=== PATIENT | male | born 1985 | race Caucasian/White ===

== ENCOUNTER 2017-08-12 19:40 | Inpatient (IN) | payer OTHER ==
[2017-08-12 23:13] VITALS: BMI 26.6
--- NOTE | 2017-08-12 23:43 | HP ---
CIWA Score - CIWA Score Nausea/Vomitin (vomiting x 5) Muscle Tremors: 4-Moderate,w/Arms Extend Anxiety: 3 Agitation: 4-Moderately Restless Paroxysmal Sweats: 2 Orientation: 0-Oriented Tacttile Disturbances: 0-None Auditory Disturbances: 0-None Visual Disturbances: 0-None Headache: 3-Moderate CIWA-Ar Total Score: 19 Admission ROS BHS - HPI Chief Complaint: Alcohol withdrawal symptoms Allergies/Adverse Reactions: Allergies Allergy/AdvReac Type Severity Reaction Status Date / Time No Known Allergies Allergy Verified 08/12/17 23:52 History of Present Illness: 31 years old male with a long history of alcohol dependence is seeking admission to detox. Patient has been in previous detox and reports insignificant period of sobriety. He has medical history of of HTN and depression. Denies suicidal ideation at this time Exam Limitations: No Limitations - Ebola screening Have you traveled outside of the country in the last 21 days: No Have you had contact with anyone from an Ebola affected area: No Have you been sick,other than usual withdrawal symptoms: No Do you have a fever: No - Review of Systems Constitutional: Loss of Appetite, Malaise, Night Sweats, Changes in sleep EENT: reports: No Symptoms Reported Respiratory: reports: No Symptoms reported Cardiac: reports: No Symptoms Reported GI: reports: Diarrhea (x 2), Nausea, Poor Appetite, Poor Fluid Intake, Vomiting (x 5), Abdominal cramping : reports: No Symptoms Reported Musculoskeletal: reports: Back Pain Integumentary: reports: Dryness Neuro: reports: Headache, Tremors Endocrine: reports: No Symptoms Reported Hematology: reports: No Symptoms Reported Psychiatric: reports: Anxious, Depressed Other Systems: Reviewed and Negative Patient History - Patient Medical History Hx Anemia: No Hx Asthma: No Hx Chronic Obstructive Pulmonary Disease (COPD): No Hx Cancer: No Hx Cardiac Disorders: No Hx Congestive Heart Failure: No Hx Hypertension: Yes (Not on medication) Hx Hypercholesterolemia: No Hx Pacemaker: No HX Cerebrovascular Accident: No Hx Seizures: No Hx Diabetes: No Hx Gastrointestinal Disorders: No Hx Liver Disease: No Hx Genitourinary Disorders: No Hx Sexually Transmitted Disorders: No Hx Renal Disease (ESRD): No Hx Thyroid Disease: No Hx Human Immunodeficiency Virus (HIV): No (Negative 2016) Hx Hepatitis C: No Hx Depression: Yes (Not on medication) Hx Suicide Attempt: No (Denies suicvide attempt and suicidal ideation at this time) Hx Bipolar Disorder: No - Patient Surgical History Past Surgical History: No - PPD History Previous Implant?: Yes Documented Results: Negative w/o proof Implanted On Prior [facility] Admission?: No PPD to be Administered?: Yes - Reproductive History Patient is a Female of Child Bearing Age (11 -55 yrs old): No (Male) - Smoking Cessation Smoking history: Former smoker Have you smoked in the past 12 months: No Hx Chewing Tobacco Use: No Initiated information on smoking cessation: No - Substance & Tx. History Hx Alcohol Use: Yes Hx Substance Use: No Substance Use Type: Alcohol Hx Substance Use Treatment: Yes ([facility]) - Substances Abused Alcohol Route: Oral Frequency: Daily Amount used: VODKA - 3 PINT, BEER - 6 24oz Age of first use: 17 Date of Last Use: 08/12/17 Family Disease History - Family Disease History Family History: Denies Admission Physical Exam [facility] - Vital Signs Vital Signs: Vital Signs - 24 hr 08/12/17 23:10 Temperature 99.4 F Pulse Rate 78 Respiratory 18 Rate Blood Pressure 138/95 - Physical General Appearance: Yes: Moderate Distress HEENTM: Yes: EOMI, Normal ENT Inspection, Normocephalic, Normal Voice, CARLOS MANUEL, Tm' s normal Respiratory: Yes: Lungs Clear, Normal Breath Sounds, No Respiratory Distress Neck: Yes: Supple Breast: Yes: Breast Exam Deferred Cardiology: Yes: Regular Rhythm, Regular Rate Abdominal: Yes: Normal Bowel Sounds Genitourinary: Yes: Within Normal Limits Back: Yes: Normal Inspection Musculoskeletal: Yes: Back pain, Muscle Pain Extremities: Yes: Tremors Neurological: Yes: Alert, Normal Mood/Affect Integumentary: Yes: Within Normal Limits Lymphatic: Yes: Within Normal Limits - Diagnostic (1) Alcohol dependence with uncomplicated withdrawal Current Visit: Yes Status: Chronic (2) Depression Current Visit: Yes Status: Chronic Qualifiers: Depression Type: unspecified Qualified Code(s): F32.9 - Major depressive disorder, single episode, unspecified (3) HTN (hypertension) Current Visit: Yes Status: Chronic Cleared for Admission [facility] - Detox or Rehab [facility] Level of Care: Medically Managed Detox Regimen/Protocol: Librium S Breath Alcohol Content Breath Alcohol Content: 0 Urine Drug Screen - Results Drug Screen Negative: No Urine Drug Screen Results: BZO-Benzodiazepines
[2017-08-13] MEDS ORDERED: guaiFENesin/D-METHORPHAN HB 10 ML UNIT-DOSE CUPS PO PRN (00:08)
[2017-08-13] MEDS ORDERED: IBUPROFEN 400 MG TABLET (FP) PO PRN (00:08)
[2017-08-13] MEDS ORDERED: ACETAMINOPHEN 325 MG TABLET (FP) PO PRN (00:08)
[2017-08-13] MEDS ORDERED: MENTHOL/PHENOL 1 EACH UD MM PRN (00:08)
[2017-08-13] MEDS ORDERED: LOPERAMIDE HCL 2 MG CAPSULE PO PRN (00:08)
[2017-08-13] MEDS ORDERED: P-EPHED 60MG/TRIPROLIDI 2.5MG TABLET PO PRN (00:08)
[2017-08-13] MEDS ORDERED: MAGNESIUM CITRATE 300 ML BOTTLE PO PRN (00:08)
[2017-08-13] MEDS ORDERED: MAGNESIUM HYDROX 2400MG/30ML ORAL SUSPENSION 30 ML CUP PO PRN (00:08)
[2017-08-13] MEDS: MAG HYDROX/AL HYDROX/SIMETH 30 ML UNIT-DOSE CUP PO PRN (02:17)
[2017-08-13] MEDS: chlordiazePOXIDE HCL 25 MG CAPSULE PO PRN (02:17)
[2017-08-13] MEDS: chlordiazePOXIDE HCL 25 MG CAPSULE PO SCH ×4 (05:48→22:33)
--- NOTE | 2017-08-13 09:02 | EKG ---
Test Reason : Blood Pressure : / mmHG Vent. Rate : 065 BPM Atrial Rate : 065 BPM P-R Int : 168 ms QRS Dur : 088 ms QT Int : 382 ms P-R-T Axes : 033 059 033 degrees QTc Int : 397 ms NORMAL SINUS RHYTHM NORMAL ECG NO PREVIOUS ECGS AVAILABLE Confirmed by INO LUBIN, ROLANDO ([id number]) on 08/13/2017 9:02:07 AM Referred By: Confirmed By:ROLANDO MCKINNON MD
[2017-08-13] MEDS: PRENATAL VITAMINS W/ FOLIC ACID TABLET (FP) PO SCH (10:05)
--- NOTE | 2017-08-13 14:47 | PN ---
S CIWA - CIWA Score Nausea/Vomitin-Mild Nausea/No Vomiting Muscle Tremors: 4-Moderate,w/Arms Extend Anxiety: 4-Mod. Anxious/Guarded Agitation: 4-Moderately Restless Paroxysmal Sweats: 1-Minimal Palms Moist Orientation: 0-Oriented Tacttile Disturbances: 1-Very Mild Itch/Numbness Auditory Disturbances: 0-None Visual Disturbances: 0-None Headache: 0-None Present CIWA-Ar Total Score: 15 BHS Progress Note (SOAP) Subjective: sweat tremor anxiety restlessness agitation gi distress Objective: 08/13/17 14:58 Vital Signs Temperature 97.3 F L 08/13/17 09:50 Pulse Rate 54 L 08/13/17 09:50 Respiratory Rate 18 08/13/17 09:50 Blood Pressure 115/68 08/13/17 09:50 O2 Sat by Pulse Oximetry (%) lab not available 08/13/17 15:00 lab ordered on 08/14/17 as per provider's preference Assessment: 08/13/17 15:01 withdrawal sx Plan: continue detox
[2017-08-13 17:54] LABS: URINE APPEARANCE CLEAR; URINE BILIRUBIN NEGATIVE (<2.0 mg/dL); URINE COLOR YELLOW; URINE GLUCOSE (UA) NEGATIVE (NEGATIVE); URINE KETONE NEGATIVE (NEGATIVE); URINE LEUK ESTERASE NEGATIVE (NEGATIVE); URINE NITRITE NEGATIVE (NEGATIVE); URINE PROTEIN NEGATIVE (NEGATIVE); URINE UROBILINOGEN 4.0 E.U/dl mg/dL (0.2-1.0)
[2017-08-13] MEDS: THIAMINE HCL 100 MG TABLET (FP) PO SCH (22:33)
[2017-08-13] MEDS: MELATONIN 5 MG TABLETS PO PRN (22:34)
[2017-08-14] MEDS: chlordiazePOXIDE HCL 25 MG CAPSULE PO SCH ×4 (05:42→22:34)
--- NOTE | 2017-08-14 09:40 | CONSULT ---
[facility] Psychiatric Consult - Data Date of interview: 08/14/17 Admission source: [facility] Identifying data: This is 31 years old male, , father of three, living alone, unemployed, with no psychiatrreic hospitalization history, intoxicated with Alcohol, reporting Alcohol withdrawal symptoms amd saeeking for detox. Substance Abuse History: - Smoking Cessation. Smoking history: Former smoker. Have you smoked in the past 12 months: No. Hx Chewing Tobacco Use: No. Initiated information on smoking cessation: No. - Substance & Tx. History. Hx Alcohol Use: Yes. Hx Substance Use: No. Substance Use Type: Alcohol. Hx Substance Use Treatment: Yes ([facility]). - Substances Abused. Alcohol. Route: Oral. Frequency: Daily. Amount used: VODKA - 3 PINT, BEER - 6 24oz. Age of first use: 17. Date of Last Use: 08/12/17 Medical History: HTN Psychiatric History: PATIENT REPORTS HISTORY OF DEPRESSION, DENIES SUICIDAL, HOMICIDAL HISTORY, NO MEDICATIONS TAKING PRIOR TO ADMISSION. Physical/Sexual Abuse/Trauma History: Denies Additional Comment: Observation. Detox Unit Care Protocol Mental Status Exam - Mental Status Exam Alert and Oriented to: Person Cognitive Function: Fair Patient Appearance: Unkempt Mood: Sad Affect: Flat Patient Behavior: Sedated Speech Pattern: Delayed Voice Loudness: Normal Thought Process: Circumstantial Thought Disorder: Being Controlled Hallucinations: Denies Suicidal Ideation: Denies Homicidal Ideation: Denies Insight/Judgement: Fair Sleep: Difficulty falling asleep Appetite: Fair Muscle strength/Tone: Mild Hypotonicity Gait/Station: Shuffling Additional Comments: Observation. 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 Detox Unit Care Protocol
[2017-08-14] MEDS: PRENATAL VITAMINS W/ FOLIC ACID TABLET (FP) PO SCH (10:10)
[2017-08-14 10:32] LABS: HEMATOCRIT 36.4 % (35.4-49); MCH 28.6 pg (25.7-33.7); MCHC 32.9 g/dl (32.0-35.9); MEAN CELL VOLUME 86.9 fl (80-96); PLATELET COUNT 251 K/MM3 (134-434); RBC 4.18 M/mm3 (4.00-5.60); RDW 16.8 % (11.9-15.9); WHITE BLOOD COUNT 6.1 K/mm3 (4.0-10.0)
[2017-08-14 10:55] LABS: ALBUMIN 3.7 g/dl (3.4-5.0); ANION GAP 9 (8-16); BLOOD UREA NITROGEN 7 mg/dL (7-18); CALCIUM 9.3 mg/dL (8.5-10.1); CHLORIDE 104 mmol/L (98-107); CO2 26 mmol/L (21-32); GLUCOSE,RANDOM 100 mg/dL (74-106); POTASSIUM 4.1 mmol/L (3.5-5.1); SODIUM 139 mmol/L (136-145)
[2017-08-14 10:59] LABS: ALK PHOS 301 U/L (45-117); BILIRUBIN,TOTAL 1.2 mg/dL (0.2-1.0); CREATININE 0.6 mg/dL (0.7-1.3); SGOT/AST 324 U/L (15-37); SGPT/ALT 123 U/L (12-78); TOT PROT 8.1 g/dl (6.4-8.2)
--- NOTE | 2017-08-14 11:03 | PN ---
S CIWA - CIWA Score Nausea/Vomitin-Mild Nausea/No Vomiting Muscle Tremors: 4-Moderate,w/Arms Extend Anxiety: 3 Agitation: 3 Paroxysmal Sweats: 1-Minimal Palms Moist Orientation: 0-Oriented Tacttile Disturbances: 0-None Auditory Disturbances: 0-None Visual Disturbances: 0-None Headache: 0-None Present CIWA-Ar Total Score: 12 BHS Progress Note (SOAP) Subjective: sweat tremor trouble sleep at night irritable anxiety Objective: 08/14/17 11:05 Vital Signs Temperature 98.1 F 08/14/17 09:22 Pulse Rate 63 08/14/17 09:22 Respiratory Rate 18 08/14/17 09:22 Blood Pressure 139/94 08/14/17 09:22 O2 Sat by Pulse Oximetry (%) Laboratory Last Values WBC 6.1 K/mm3 (4.0-10.0) 08/14/17 07:40 RBC 4.18 M/mm3 (4.00-5.60) 08/14/17 07:40 Hgb 12.0 GM/dL (11.7-16.9) 08/14/17 07:40 Hct 36.4 % (35.4-49) 08/14/17 07:40 MCV 86.9 fl (80-96) 08/14/17 07:40 MCH 28.6 pg (25.7-33.7) 08/14/17 07:40 MCHC 32.9 g/dl (32.0-35.9) 08/14/17 07:40 RDW 16.8 % (11.9-15.9) H 08/14/17 07:40 Plt Count 251 K/MM3 (134-434) 08/14/17 07:40 MPV 8.0 fl (7.5-11.1) 08/14/17 07:40 Urine Color Yellow 08/13/17 16:45 Urine Appearance Clear 08/13/17 16:45 Urine pH 7.0 (5.0-8.0) 08/13/17 16:45 Ur Specific [place] 1.005 (1.001-1.035) 08/13/17 16:45 Urine Protein Negative (NEGATIVE) 08/13/17 16:45 Urine Glucose (UA) Negative (NEGATIVE) 08/13/17 16:45 Urine Ketones Negative (NEGATIVE) 08/13/17 16:45 Urine Blood Negative (NEGATIVE) 08/13/17 16:45 Urine Nitrite Negative (NEGATIVE) 08/13/17 16:45 Urine Bilirubin Negative (<2.0 mg/dL) 08/13/17 16:45 Urine Urobilinogen 4.0 e.u/dl mg/dL (0.2-1.0) 08/13/17 16:45 Ur Leukocyte Esterase Negative (NEGATIVE) 08/13/17 16:45 lab noted Assessment: 08/14/17 11:05 withdrawal sx Plan: continue detox
[2017-08-14] MEDS: MAG HYDROX/AL HYDROX/SIMETH 30 ML UNIT-DOSE CUP PO PRN (22:33)
[2017-08-14] MEDS: MELATONIN 5 MG TABLETS PO PRN (22:33)
[2017-08-14] MEDS: THIAMINE HCL 100 MG TABLET (FP) PO SCH (22:34)
[2017-08-15] MEDS: chlordiazePOXIDE 5 MG CAPSULE PO SCH ×3 (05:19→17:38)
[2017-08-15] MEDS: MAG HYDROX/AL HYDROX/SIMETH 30 ML UNIT-DOSE CUP PO PRN (05:20)
[2017-08-15] MEDS: PRENATAL VITAMINS W/ FOLIC ACID TABLET (FP) PO SCH (10:14)
[2017-08-15] MEDS: chlordiazePOXIDE HCL 25 MG CAPSULE PO PRN (12:34)
--- NOTE | 2017-08-15 14:53 | PN ---
BHS Progress Note (SOAP) Subjective: pt states feeling fine. Going to jail in 2 days, does not want to go to rehab , here for alcohol detox Objective: 08/15/17 14:51 CBC, BMP 08/14/17 07:40 08/14/17 07:40 CBC,CMP WBC 6.1 K/mm3 (4.0-10.0) 08/14/17 07:40 RBC 4.18 M/mm3 (4.00-5.60) 08/14/17 07:40 Hgb 12.0 GM/dL (11.7-16.9) 08/14/17 07:40 Hct 36.4 % (35.4-49) 08/14/17 07:40 MCV 86.9 fl (80-96) 08/14/17 07:40 MCH 28.6 pg (25.7-33.7) 08/14/17 07:40 MCHC 32.9 g/dl (32.0-35.9) 08/14/17 07:40 RDW 16.8 % (11.9-15.9) H 08/14/17 07:40 Plt Count 251 K/MM3 (134-434) 08/14/17 07:40 MPV 8.0 fl (7.5-11.1) 08/14/17 07:40 Sodium 139 mmol/L (136-145) 08/14/17 07:40 Potassium 4.1 mmol/L (3.5-5.1) 08/14/17 07:40 Chloride 104 mmol/L (98-107) 08/14/17 07:40 Carbon Dioxide 26 mmol/L (21-32) 08/14/17 07:40 Anion Gap 9 (8-16) 08/14/17 07:40 BUN 7 mg/dL (7-18) 08/14/17 07:40 Creatinine 0.6 mg/dL (0.7-1.3) L 08/14/17 07:40 Creat Clearance w eGFR > 60 (>60) 08/14/17 07:40 Random Glucose 100 mg/dL (74-106) 08/14/17 07:40 Calcium 9.3 mg/dL (8.5-10.1) 08/14/17 07:40 Total Bilirubin 1.2 mg/dL (0.2-1.0) H 07/05/18 07:40 AST 324 U/L (15-37) H 08/14/17 07:40 ALT 123 U/L (12-78) H 08/14/17 07:40 Alkaline Phosphatase 301 U/L (45-117) H 08/14/17 07:40 Total Protein 8.1 g/dl (6.4-8.2) 08/14/17 07:40 Albumin 3.7 g/dl (3.4-5.0) 08/14/17 07:40 abnormal LFT's Vital Signs - 24 hr 08/14/17 08/14/17 08/15/17 17:52 22:44 00:30 Temperature 98.2 F 98.1 F Pulse Rate 66 75 Respiratory 18 16 18 Rate Blood Pressure 113/75 132/85 08/15/17 08/15/17 08/15/17 06:14 11:19 14:22 Temperature 97.7 F 97.9 F 97.7 F Pulse Rate 56 L 62 73 Respiratory 18 18 18 Rate Blood Pressure 125/71 129/83 122/73 VS stable grossly nl PE Assessment: 08/15/17 14:52 continue alcohol detox high liver enzymes at admission- pt without abd pain f/u as outpt Plan: pt states will be going to jail and not rehab at d/c
--- NOTE | 2017-08-15 17:07 | PN ---
[facility] Progress Note Note: Pt wants to leave now. Says he is feeling fine and is not tremulous and would like to leave- will go to [facility] or to his sister's place
--- NOTE | 2017-08-15 17:11 | DS ---
[facility] Detox Discharge Summary Admission Date: 08/12/17 Discharge Date: 08/15/17 - History Present History: Alcohol Dependence Additional Comments: pt leaving today b/c he states he feels fine and feels like he does not need to be here - Physical Exam Results Vital Signs: Vital Signs Temperature 97.7 F 08/15/17 14:22 Pulse Rate 73 08/15/17 14:22 Respiratory Rate 18 08/15/17 14:22 Blood Pressure 122/73 08/15/17 14:22 O2 Sat by Pulse Oximetry (%) Pertinent Admission Physical Exam Findings: PE normal - Treatment Hospital Course: Detox Protocol Followed - Medication Discharge Medications: Ambulatory Orders NK [No Known Home Medication] 08/14/17 - Diagnosis (1) Liver enzyme elevation Current Visit: Yes Status: Acute (2) Alcohol dependence with uncomplicated withdrawal Current Visit: Yes Status: Acute - AMA Did Patient Leave Against Medical Advice: Yes (pt wants to leave- says feeling fine)
[2017-08-15 17:30] VITALS: BP 126/70; PULSE 65; TEMP 97.9
[2017-08-16] MEDS ORDERED: chlordiazePOXIDE HCL 10 MG CAPSULE PO SCH (05:00)
== END 2017-08-15 17:45 | disposition left against medical advice (07) | DRG 770 ==
LOC: YASAS 19:40 → Y6N 23:37
PROVIDERS: ADMIT Surgery; ATTEND Surgery
PROC: HZ2ZZZZ Detoxification Services for Substance Abuse Treatment (ICD-10-PCS; principal; 2017-08-12)
DX: F10.230 Alcohol dependence with withdrawal, uncomplicated (principal); F10.24 Alcohol dependence with alcohol-induced mood disorder; F10.282 Alcohol dependence with alcohol-induced sleep disorder; F32.9 Major depressive disorder, single episode, unspecified; I10 Essential (primary) hypertension; R79.89 Other specified abnormal findings of blood chemistry; R74.8 Abnormal levels of other serum enzymes
CPT/HCPCS: 36415; 80053; 81003; 85027; 86593; 93005; 93010